=== PATIENT | female | born 1955 | race Caucasian/White ===

== ENCOUNTER 2019-09-02 13:51 | Emergency (ER) | payer BC ==
[~2019-09-02] VITALS: Ht 160 cm; Wt 97.1 kg
[~2019-09-02 13:51] MED LIST: CALTRATE 600 +1 EACH PO; HCT25T PO; KRIL1CAP10 PO; METR500T PO; TOLTA4 PO
--- NOTE | 2019-09-02 14:40 | ED General ---
General Chief Complaint: General Problems/Pain Stated Complaint: SOB; LETHARGY Nursing Triage Note: Patient reports she started taking melatonin, celexa and zoloft on Sunday of last week, states she feels very fatigued and has trouble staying awake in the evenings. Patient states she is so fatigued that she feels as though she is going to pass out and that she is having difficulty breathing. She also reports bilateral burning chest pain that she states is similar to her normal heartburn rated 5/10. Nursing Sepsis Screen: No Definite Risk Source of Information: Patient Exam Limitations: No Limitations History of Present Illness Date Seen by Provider: Sep 02, 2019 Time Seen by Provider: 14:00 Initial Comments The patient is a very pleasant 63-year-old female who presents for evaluation of shortness of breath and fatigue over the last few days. She states that she started to take Celexa, Zoloft, and melatonin 6 days ago. She states since that time she has been very fatigued. However, today she felt like she was going to pass out because she was short of breath. She denies pain with inspirations, productive cough, hemoptysis, back or flank pain, abdominal pain, fevers or chills. She is alert and oriented 4, calm, and appears to be in no distress this time. She is alert and oriented 4, calm, speaking in full sentences, and appears to be in no respiratory distress at this time. Timing/Duration: 1-2 Days Severity: Moderate Associated Systoms: Shortness of Air Allergies and Home Medications Allergies Uncoded Allergies: sulfa (Allergy, Unknown, 09/02/19) Home Medications Calcium Carbonate/Vitamin D3 1 Each Tab.chew, 1 EACH PO DAILY, (Reported) Hydrochlorothiazide 25 Mg Tablet, 1 EACH PO DAILY, (Reported) Krill Oil/Sperry-3/Dha/Epa 1 Each Capsule.dr, 1 EACH PO DAILY, (Reported) Metronidazole 500 Mg Tab, 1 EACH PO TID, (Reported) NEW PRESCRIPTION CALLED TO [facility] Tolterodine Tartrate 4 Mg Cap.sr.24h, 1 EACH PO DAILY, (Reported) Patient Home Medication List Home Medication List Reviewed: Yes Review of Systems Review of Systems Constitutional: no symptoms reported EENTM: no symptoms reported Respiratory: no symptoms reported, short of breath Cardiovascular: no symptoms reported Gastrointestinal: no symptoms reported Genitourinary: no symptoms reported Musculoskeletal: no symptoms reported Skin: no symptoms reported Psychiatric/Neurological: No Symptoms Reported Hematologic/Lymphatic: No Symptoms Reported Immunological/Allergic: no symptoms reported All Other Systems Reviewed Negative Unless Noted: Yes Past Roigiuq-Ogjhvl-Obgtva Hx Past Med/Social Hx: Reviewed Nursing Past Med/Soc Hx Patient Social History Alcohol Use: Denies Use Recreational Drug Use: No Smoking Status: Never a Smoker 2nd Hand Smoke Exposure: No Recent Foreign Travel: No Contact w/Someone Who Travel: No Recent Infectious Disease Expo: No Recent Hopitalizations: No Physical Abuse: No Sexual Abuse: No Mistreated: No Fear: No Seasonal Allergies Seasonal Allergies: No Past Medical History Surgeries: No Respiratory: No Cardiac: Yes Hypertension Neurological: No Genitourinary: No Gastrointestinal: Yes (IBS) Musculoskeletal: No Endocrine: No HEENT: No Cancer: No Psychosocial: Yes Anxiety, Depression Integumentary: No Physical Exam Vital Signs Vital Signs - First Documented 09/02/19 13:55 Temp 36.7 Pulse 86 Resp 19 B/P (MAP) 170/85 (113) Pulse Ox 96 O2 Delivery Room Air Capillary Refill : Less Than 3 Seconds Height, Weight, BMI Height: '" Weight: lbs. oz. kg; 37.00 BMI Method: General Appearance: No Apparent Distress, WD/WN, Anxious Eyes: Bilateral Eye Normal Inspection, Bilateral Eye PERRL, Bilateral Eye EOMI HEENT: PERRL/EOMI, Pharynx Normal Neck: Full Range of Motion, Normal Inspection, Non Tender, Supple Respiratory: Chest Non Tender, Lungs Clear, Normal Breath Sounds Cardiovascular: Regular Rate, Rhythm, No Edema, No JVD Gastrointestinal: Normal Bowel Sounds, No Organomegaly, No Pulsatile Mass, Non Tender, Soft Extremity: Normal Capillary Refill, Normal Inspection, Non Tender, No Pedal Edema Neurologic/Psychiatric: Alert, Oriented x3, No Motor/Sensory Deficits, Normal Mood/Affect Skin: Normal Color, Warm/Dry Progress/Results/Core Measures Suspected Sepsis Recent Fever Within 48 Hours: No Infection Criteria Present: None New/Unexplained Altered Menta: No Sepsis Screen: No Definite Risk SIRS Temperature: Pulse: 86 Respiratory Rate: 19 Laboratory Tests 09/02/19 14:20: White Blood Count 12.2H Blood Pressure 170 /85 Mean: 113 Laboratory Tests 09/02/19 14:20: Creatinine 0.64, Platelet Count 342, Total Bilirubin 0.2 Results/Orders Lab Results Laboratory Tests Test 09/02/19 14:20 Range/Units White Blood Count 12.2 H 4.3-11.0 10^3/uL Red Blood Count 4.62 4.35-5.85 10^6/uL Hemoglobin 12.4 11.5-16.0 G/DL Hematocrit 38 35-52 % Mean Corpuscular Volume 83 80-99 FL Mean Corpuscular Hemoglobin 27 25-34 PG Mean Corpuscular Hemoglobin Concent 32 32-36 G/DL Red Cell Distribution Width 15.2 H 10.0-14.5 % Platelet Count 342 130-400 10^3/uL Mean Platelet Volume 8.7 7.4-10.4 FL Neutrophils (%) (Auto) 78 H 42-75 % Lymphocytes (%) (Auto) 15 12-44 % Monocytes (%) (Auto) 7 0-12 % Eosinophils (%) (Auto) 0 0-10 % Basophils (%) (Auto) 0 0-10 % Neutrophils # (Auto) 9.4 H 1.8-7.8 X 10^3 Lymphocytes # (Auto) 1.9 1.0-4.0 X 10^3 Monocytes # (Auto) 0.9 0.0-1.0 X 10^3 Eosinophils # (Auto) 0.0 0.0-0.3 10^3/uL Basophils # (Auto) 0.0 0.0-0.1 10^3/uL Sodium Level 136 135-145 MMOL/L Potassium Level 3.8 3.6-5.0 MMOL/L Chloride Level 101 98-107 MMOL/L Carbon Dioxide Level 22 21-32 MMOL/L Anion Gap 13 5-14 MMOL/L Blood Urea Nitrogen 15 7-18 MG/DL Creatinine 0.64 0.60-1.30 MG/DL Estimat Glomerular Filtration Rate > 60 BUN/Creatinine Ratio 23 Glucose Level 110 H 70-105 MG/DL Calcium Level 9.4 8.5-10.1 MG/DL Corrected Calcium 9.3 8.5-10.1 MG/DL Total Bilirubin 0.2 0.1-1.0 MG/DL Aspartate Amino Transf (AST/SGOT) 14 5-34 U/L Alanine Aminotransferase (ALT/SGPT) 18 0-55 U/L Alkaline Phosphatase 53 40-136 U/L Troponin I < 0.30 <0.30 NG/ML Pro-B-Type Natriuretic Peptide < 5.0 <75.0 PG/ML Total Protein 7.5 6.4-8.2 GM/DL Albumin 4.1 3.2-4.5 GM/DL My Orders Orders - CHRISTIAN MORALES Pavan DO Cbc With Automated Diff (09/02/19 14:21) Comprehensive Metabolic Panel (09/02/19 14:21) Probnp Fs (09/02/19 14:21) Troponin I Fs (09/02/19 14:21) Chest Pa/Lat (2 View) (09/02/19 14:21) Ed Iv/Invasive Line Start (09/02/19 14:34) Ekg Tracing (09/02/19 14:34) Ns Iv 1000 Ml (Sodium Chloride 0.9%) (09/02/19 15:45) Ns Iv 1000 Ml (Sodium Chloride 0.9%) (09/02/19 15:43) Vital Signs/I&O 09/02/19 13:55 Temp 36.7 Pulse 86 Resp 19 B/P (MAP) 170/85 (113) Pulse Ox 96 O2 Delivery Room Air Capillary Refill : Less Than 3 Seconds Blood Pressure Mean: 113 POS Progress Note : Progress Note @1610 - Patient updated on lab and imaging results. Her symptoms are likely secondary to the 3 recent medications she started taking. Advised that she discuss this with her PCP in the next 1-2 days and she states that she is going to see her primary care doctor tomorrow and that there will be a medication change. She states that she is feeling better now. She is currently receiving some IV fluids to help with her fatigue. She states her shortness of breath is resolved. Workup today fails to reveal any emergent pathology. The patient is stable for discharge home at this time. Advised close follow-up with the patient's PCP in the next 1-2 days and return to the Emergency Department immediately for new or worsening symptoms. ECG EKG : Comment @1404 - Normal sinus rhythm, rate of 83, normal axis, no acute ischemic findings noted, no STEMI, reviewed and interpreted by myself Departure Impression Primary Impression: Fatigue Additional Impression: Dyspnea Disposition: 01 HOME, SELF-CARE Condition: Stable Departure-Patient Inst. Decision time for Depature: 16:21 Referrals: LUIS GO DO (PCP/Family) Primary Care Physician Patient Instructions: Fatigue, Shortness of Breath (Dyspnea) (DC) Add. Discharge Instructions: As discussed, your symptoms are likely secondary to medication side effects of y our new medications. Follow-up with your doctor in the next 1-2 days. Return to the emergency Department immediately for new or worsening symptoms. CHRISTIAN MORALES DO Sep 02, 2019 14:40 POS
--- NOTE | 2019-09-02 14:53 | Diagnostic Imaging Report ---
INDICATION: Chest pain. PA and lateral chest obtained at 2:17 p.m. COMPARISON: There is no prior study for comparison. FINDINGS: Heart is borderline in size. Mediastinal silhouette is unremarkable except for moderate tortuosity of the aorta. There is no focal infiltrate or pneumothorax or pleural fluid. IMPRESSION: Borderline heart size with tortuous aorta. No acute infiltrate or pleural fluid. Dictated by: Dictated on workstation # [id number]
[2019-09-02 15:12] LABS: ALANINE AMINOTRANSFERASE 18 U/L (0-55); ALKALINE PHOSPHATASE 53 U/L (40-136); BILIRUBIN,TOTAL 0.2 MG/DL (0.1-1.0); BUN/CREATININE RATIO 23; CALCIUM 9.4 MG/DL (8.5-10.1); CARBON DIOXIDE 22 MMOL/L (21-32); CHLORIDE 101 MMOL/L (98-107); CREATININE SERUM 0.64 MG/DL (0.60-1.30); GFR ESTIMATED > 60; GLUCOSE 110 MG/DL (70-105); POTASSIUM 3.8 MMOL/L (3.6-5.0); SODIUM 136 MMOL/L (135-145)
[2019-09-02 15:13] LABS: ALBUMIN 4.1 GM/DL (3.2-4.5); HEMATOCRIT 38 % (35-52); HEMOGLOBIN 12.4 G/DL (11.5-16.0); MEAN CORPUSCULAR HGB CONC 32 G/DL (32-36); MEAN CORPUSCULAR VOLUME 83 FL (80-99); TOTAL PROTEIN 7.5 GM/DL (6.4-8.2); WHITE BLOOD COUNT 12.2 10^3/uL (4.3-11.0)
[2019-09-02 15:14] LABS: BASOPHILS % (AUTO) 0 % (0-10); EOSINOPHILS % (AUTO) 0 % (0-10); LYMPHOCYTES # (AUTO) 1.9 X 10^3 (1.0-4.0); LYMPHOCYTES % (AUTO) 15 % (12-44); MEAN CORPUSCULAR HEMOGLOBIN 27 PG (25-34); MEAN PLATELET VOLUME 8.7 FL (7.4-10.4); MONOCYTES # (AUTO) 0.9 X 10^3 (0.0-1.0); MONOCYTES % (AUTO) 7 % (0-12); NEUTROPHILS # (AUTO) 9.4 X 10^3 (1.8-7.8); NEUTROPHILS % (AUTO) 78 % (42-75); PLATELET COUNT 342 10^3/uL (130-400); RED CELL DISTRIBUTION WIDTH 15.2 % (10.0-14.5)
[2019-09-02] MEDS ORDERED: NS IV 1000 ML 1,000 ML ONE (15:43)
[2019-09-02] MEDS ORDERED: NS IV 1000 ML 1,000 ML IV SCH (15:45)
[2019-09-02 17:10] VITALS: BP 157/65
== END 2019-09-02 17:00 | disposition home or self-care (01) ==
LOC: EDUNIT# 13:51 → ER FS 13:52
DX: R53.83 Other fatigue (principal); R06.00 Dyspnea, unspecified; I10 Essential (primary) hypertension; F41.9 Anxiety disorder, unspecified; F32.9 Major depressive disorder, single episode, unspecified; Z88.2 Allergy status to sulfonamides
CPT/HCPCS: 36415; 71046; 80053; 83880; 84484; 85025; 93005

== ENCOUNTER 2019-09-08 13:16 | Outpatient (CLI) | payer BC, OTHER | END 2019-09-08 13:55 | disposition home or self-care (01) | LOC: SLEEP 13:16 | PROVIDERS: ATTEND Family Medicine | DX: R06.83 Snoring (principal); R53.82 Chronic fatigue, unspecified; Z53.9 Procedure and treatment not carried out, unspecified reason ==

== ENCOUNTER → 2019-12-29 | Outpatient (CLI) | payer BC | LOC: SLEEP 20:01 | PROVIDERS: ATTEND Family Medicine | DX: G47.33 Obstructive sleep apnea (adult) (pediatric) (principal) ==

== ENCOUNTER → 2022-04-04 | Outpatient (CLI) | payer BC ==
--- NOTE | 2022-04-04 16:51 | Diagnostic Imaging Report ---
Exam: MRI left hand without contrast. Date: April 04, 2022. Indication: 66-year-old female, fall in February 2022. Left thumb pain. Comparison: None. Technique: Multiple noncontrast MRI sequences of the left hand were obtained. Findings: There is no identified acute fracture. There is no identified bone contusion. There is no dislocation. There is no sizable joint effusion. There is dorsal subcutaneous edema centered in the region of the first metacarpophalangeal joint. There is also low-level edema in the first dorsal interosseous muscle. The visualized flexor and extensor tendons are intact. There is limited evaluation of the collateral ligaments of the first metacarpal phalangeal joint relating to lack of dedicated imaging and obliquity of imaging. Impression: 1. No acute fracture or bone contusion. 2. Predominantly dorsal subcutaneous edema centered near the first metacarpophalangeal joint as well as low-level edema in the first dorsal interosseous muscle which may reflect soft tissue contusion and low-grade muscle contusion. A focal low-grade muscle strain is also considered for the area of abnormal intramuscular signal. 3. Negative for extensor or flexor tendon tear. 4. Limited evaluation of the collateral ligaments at the level of the first metacarpal phalangeal joint given large [id number] of imaging and obliquity of imaging. Dictated by: Dictated on workstation # [id number]
== END ==
LOC: RAD 14:00
PROVIDERS: ATTEND Pediatrics
DX: S69.92XD Unspecified injury of left wrist, hand and finger(s), subsequent encounter (principal); W19.XXXD Unspecified fall, subsequent encounter
CPT/HCPCS: 73218